=== PATIENT | male | born 1970 | race Caucasian/White ===

== ENCOUNTER → 2020-09-03 | Outpatient (CLI) | payer BC ==
--- NOTE | 2020-09-03 12:00 | MR ---
EXAMINATION TYPE: MR knee LT wo con DATE OF EXAM: 09/03/2020 COMPARISON: None HISTORY: Left knee pain/injury TECHNIQUE: Multiplanar, multisequence imaging of the left knee is performed without IV contrast. FINDINGS: MEDIAL MENISCUS: Anterior and posterior horns are intact without tear. LATERAL MENISCUS: Anterior and posterior horns are intact without tear. CRUCIATE LIGAMENTS: The anterior and posterior cruciate ligaments are intact and unremarkable. COLLATERAL LIGAMENTS: The medial collateral ligament and lateral collateral ligament complex are inta ct and unremarkable. EXTENSOR MECHANISM: Visualized quadriceps and patellar tendons are intact. EFFUSION: Small joint effusion noted. POPLITEAL CYST: Small Dolan's cyst measuring 2.0 cm x 0.7 cm TRICOMPARTMENT SPACES: Intact CARTILAGE: Intact BONE MARROW SIGNAL: Bone marrow contusion lateral femoral condyle without evidence for fracture. OTHER: No additional significant abnormality is appreciated. IMPRESSION: 1.Bone marrow contusion lateral femoral condyle without evidence for fracture. 2. Small joint effusion. 3. Small Dolan's cyst.
== END | disposition home or self-care (01) ==
LOC: RADMRIMAIN 11:05
PROVIDERS: ATTEND Orthopaedic Surgery
DX: S80.02XA Contusion of left knee, initial encounter (principal); M71.22 Synovial cyst of popliteal space [Baker], left knee; M25.462 Effusion, left knee